=== PATIENT | female | born 1990 | race American Indian/Alaskan Native ===

== ENCOUNTER 2019-01-09 14:29 | Emergency (ER) | payer OTHER, MEDICAID ==
--- NOTE | 2019-01-09 15:26 | Emergency Department Report ---
Blank Doc - Documentation Documentation: This is a 28-year-old female that presents with URI symptoms. This initial assessment/diagnostic orders/clinical plan/treatment(s) is/are subject to change based on patient's health status, clinical progression and re- assessment by fellow clinical providers in the ED. Further treatment and workup at subsequent clinical providers discretion. Patient/guardians urged not to elope from the ED as their condition may be serious if not clinically assessed and managed. Initial orders include: 1- Patient sent to [facility] for further evaluation and treatment 2- CXR
[2019-01-09 19:36] LABS: Hemoglobin 12.4 gm/dl (10.1-14.3)
[2019-01-09 20:58] VITALS: BP 116/65
[2019-01-09 21:28] LABS: Bacteria,Urine 1+ /HPF (Negative); Bilirubin,Urine NEG (Negative); Blood,Urine NEG (Negative); Color,Urine Straw (Yellow); Protein,Urine <15 mg/dL mg/dL (Negative); Urobilinogen,Urine < 2.0 mg/dL (<2.0)
--- NOTE | 2019-01-09 22:55 | Emergency Department Report ---
ED General Adult HPI - General Chief complaint: Upper Respiratory Infection Stated complaint: COLD SX/PREG Time Seen by Provider: 01/09/19 15:25 Source: patient Mode of arrival: Ambulatory Limitations: No Limitations - History of Present Illness Initial comments: Pt is a 28 yo female who presents to the ED with c/o cold sx that began two weeks ago. The patient states she has dry cough, rhinorrhea, chills, fever, body aches, and MCKEON. The patient states she has also had suprapubic cramping for two days. She denies any urinary sx or vaginal bleeding. She was seen by urgent care today and states she tested positive for strep throat by throat swab and i nfluenza by nasal swab. The patient states she also was not aware she was and had a positive test at the urgent care, she staetes based on her LNMP she is 10 weeks . She states she has taken nyquil for two days and has taken a total of 6 pills over the course of two days. She states that the urgent care called Dr. Ruiz, OB who recommended for the patient to be seen in the ED for a OB US. The patient states she was given a prescription for zithromax by the urgent care. Severity scale (0 -10): 8 - Related Data Previous Rx's Medication Instructions Recorded Last Taken Type Azithromycin [Zithromax TAB] 500 mg PO QDAY #5 tablet 11/21/18 Unknown Rx Oseltamivir [Tamiflu] 75 mg PO BID 5 Days #10 cap 01/09/19 Unknown Rx Allergies Allergy/AdvReac Type Severity Reaction Status Date / Time Penicillins Allergy Angioedema Verified 01/09/19 15:26 ED Review of Systems ROS: Stated complaint: COLD SX/PREG Other details as noted in HPI Comment: All other systems reviewed and negative ED Past Medical Hx - Past Medical History Hx Asthma: Yes Additional medical history: pyloric stenosis - Surgical History Additional Surgical History: tonsillectomy, - Social History Smoking Status: Never Smoker Substance Use Type: None - Medications Home Medications: Home Medications Medication Instructions Recorded Confirmed Last Taken Type Azithromycin [Zithromax TAB] 500 mg PO QDAY #5 tablet 11/21/18 Unknown Rx Oseltamivir [Tamiflu] 75 mg PO BID 5 Days #10 cap 01/09/19 Unknown Rx ED Physical Exam - General Limitations: No Limitations General appearance: alert, in no apparent distress - Head Head exam: Present: atraumatic, normocephalic - Eye Eye exam: Present: normal appearance, PERRL, EOMI - ENT ENT exam: Present: normal orophraynx, mucous membranes moist, other (tonsils are absent, no erythema of the oropharynx or exudates, uvula is midline) - Neck Neck exam: Present: normal inspection, full ROM. Absent: meningismus - Respiratory Respiratory exam: Present: normal lung sounds bilaterally. Absent: respiratory distress, wheezes, rales, rhonchi, stridor, chest wall tenderness, accessory muscle use, decreased breath sounds, prolonged expiratory - Cardiovascular Cardiovascular Exam: Present: regular rate, normal rhythm, normal heart sounds. Absent: systolic murmur, rubs, gallop - GI/Abdominal GI/Abdominal exam: Present: soft, normal bowel sounds. Absent: distended, t enderness, guarding, rebound, rigid - Neurological Exam Neurological exam: Present: alert, oriented X3 - Psychiatric Psychiatric exam: Present: normal affect, normal mood - Skin Skin exam: Present: warm, dry, intact ED Course Vital Signs 01/09/19 01/09/19 01/09/19 15:26 20:57 23:49 Temperature 98.1 F 98.7 F Pulse Rate 82 85 77 Respiratory 16 20 17 Rate Blood Pressure 126/70 Blood Pressure 116/65 [Left] O2 Sat by Pulse 100 99 99 Oximetry ED Medical Decision Making - Lab Data Result diagrams: 01/09/19 19:28 Lab Results 01/09/19 01/09/19 01/09/19 Range/Units 19:28 19:28 19:28 Hgb 12.4 (10.1-14.3) gm/dl Hct 35.0 (30.3-42.9) % Plt Count 233 (140-440) K/mm3 HCG, Quant 195237 H (0-4) mIU/mL Urine Color (Yellow) Urine Turbidity (Clear) Urine pH (5.0-7.0) Ur Specific [place] (1.003-1.030) Urine Protein (Negative) mg/dL Urine Glucose (UA) (Negative) mg/dL Urine Ketones (Negative) mg/dL Urine Blood (Negative) Urine Nitrite (Negative) Urine Bilirubin (Negative) Urine Urobilinogen (<2.0) mg/dL Ur Leukocyte Esterase (Negative) Urine WBC (Auto) (0.0-6.0) /HPF Urine RBC (Auto) (0.0-6.0) /HPF U Epithel Cells (Auto) (0-13.0) /HPF Urine Bacteria (Auto) (Negative) /HPF Blood Type O NEGATIVE 01/09/19 Range/Units 19:54 Hgb (10.1-14.3) gm/dl Hct (30.3-42.9) % Plt Count (140-440) K/mm3 HCG, Quant (0-4) mIU/mL Urine Color Straw (Yellow) Urine Turbidity Clear (Clear) Urine pH 7.0 (5.0-7.0) Ur Specific [place] 1.005 (1.003-1.030) Urine Protein <15 mg/dl (Negative) mg/dL Urine Glucose (UA) Neg (Negative) mg/dL Urine Ketones Neg (Negative) mg/dL Urine Blood Neg (Negative) Urine Nitrite Neg (Negative) Urine Bilirubin Neg (Negative) Urine Urobilinogen < 2.0 (<2.0) mg/dL Ur Leukocyte Esterase Sm (Negative) Urine WBC (Auto) 1.0 (0.0-6.0) /HPF Urine RBC (Auto) 1.0 (0.0-6.0) /HPF U Epithel Cells (Auto) 1.0 (0-13.0) /HPF Urine Bacteria (Auto) 1+ (Negative) /HPF Blood Type Vital Signs 01/09/19 01/09/19 15:26 20:57 Temperature 98.1 F 98.7 F Pulse Rate 82 85 Respiratory 16 20 Rate Blood Pressure 126/70 Blood Pressure 116/65 [Left] O2 Sat by Pulse 100 99 Oximetry - Radiology Data Radiology results: report reviewed PROCEDURE: US OB <= 14 WEEKS FETUS TECHNIQUE: Real-time transabdominal sonography of the uterus, placenta, amniotic fluid, adnexa, and fetus was performed with image documentation. Measurements were obtained to determine age/size. M-mode Doppler was used to document heartbeat. ADDITIONAL GESTATION: None. HISTORY: 10 weeks based on LNMP, abd cramping COMPARISONS: None . FINDINGS: CRL: 15.7 mm, which corresponds to a gestational age of: 8 weeks, 0 days. Yolk Sac: Appropriate for gestational age. . Embryonic Cardiac Activity: 1 7 6 bpm . Gestational Sac: Size and shape are appropriate for gestational age Placenta: Normal Amniotic fluid: Appropriate for gestational age. Cervix: Normal. Right Ovary: Normal . Left Ovary: Not identified. . Estimated delivery date: 08/21/2019 . Uterus and adnexa: Normal. IMPRESSION: Single live intrauterine gestation at approximately 8 weeks . EDC by US 08/21/2019 . This document is electronically signed by Dandy Tejeda MD., January 09 2019 11:17:46 PM ET - Medical Decision Making Pt is a 28 yo female who presents to the ED with c/o cold sx that began two weeks ago. The patient states she has dry cough, rhinorrhea, chills, fever, body aches, and MCKEON. The patient states she has also had suprapubic cramping for two days. She denies any urinary sx or vaginal bleeding. She was seen by urgent care today and states she tested positive for strep throat by throat swab and influenza by nasal swab. The patient states she also was not aware she was and had a positive test at the urgent care, she staetes based on her LNMP she is 10 weeks . She states she has taken nyquil for two days and has taken a total of 6 pills over the course of two days. She states that the urgent care called Dr. Ruiz, OB who recommended for the patient to be seen in the ED for a OB US. The patient states she was given a prescription for zithromax by the urgent care, advised pt to fill this prescription and take as prescribed. On examination lungs are clear with no w/r/r bilaterally. vitals signs are all normal. pt does not have a productive cough. she states she occasionally has a dry cough. labs are all WNL, UA is normal. US shows live IUP at 8 weeks gestation. Will give pt tamiflu based on the medical literature. Will have pt follow up with an CHIEF OPERATOR in the next 2-3 days. Will have pt follow up with her PCP in the next 2-3 days. Discussed in detail with pt to return to the emergency immediately for any new or worsening symptoms or if symptoms not improving. - Differential Diagnosis influenza, strep, URI, viral syndrome, Critical care attestation.: If time is entered above; I have spent that time in minutes in the direct care of this critically ill patient, excluding procedure time. ED Disposition Clinical Impression: Influenza Qualifiers: Weeks of gestation: 8 weeks Qualified Code(s): Z3A.08 - 8 weeks gestation of Disposition: DC-01 TO HOME OR SELFCARE Is pt being admited?: No Does the pt Need Aspirin: No Condition: Stable Instructions: (ED), Influenza (ED) Additional Instructions: Please follow up with a primary care doctor and an CHIEF OPERATOR in the next 2-3 days. Please take medication as prescribed. Please take the zithromax that was prescribed to you by urgent care. May use tylenol for a temperature of 100.4 or greater. Return to the emergency room for any new or worsening symptoms as discussed. Prescriptions: Oseltamivir [Tamiflu] 75 mg PO BID 5 Days #10 cap Referrals: RAGINI PRINGLE MD [Primary Care Provider] - 2-3 Days GRACE FRENCH MD [Staff Physician] - 2-3 Days Forms: Work/School Release Form(ED) Time of Disposition: 23:29 Print Language: LUX[place]BOURGISH
--- NOTE | 2019-01-09 23:19 | Ultrasound Report ---
PROCEDURE: US OB <= 14 WEEKS FETUS TECHNIQUE: Real-time transabdominal sonography of the uterus, placenta, amniotic fluid, adnexa, and fetus was performed with image documentation. Measurements were obtained to determine age/size. M-mode Doppler was used to document heartbeat. ADDITIONAL GESTATION: None. HISTORY: 10 weeks based on LNMP, abd cramping COMPARISONS: None . FINDINGS: CRL: 15.7 mm, which corresponds to a gestational age of: 8 weeks, 0 days. Yolk Sac: Appropriate for gestational age. . Embryonic Cardiac Activity: 1 7 6 bpm . Gestational Sac: Size and shape are appropriate for gestational age Placenta: Normal Amniotic fluid: Appropriate for gestational age. Cervix: Normal. Right Ovary: Normal . Left Ovary: Not identified. . Estimated delivery date: 08/21/2019 . Uterus and adnexa: Normal. IMPRESSION: Single live intrauterine gestation at approximately 8 weeks . EDC by US 08/21/2019 . This document is electronically signed by Dandy Tejeda MD., January 09 2019 11:17:46 PM ET
--- NOTE | 2019-01-09 23:55 | Ultrasound Report ---
PROCEDURE: US OB TRANSVAGINAL TECHNIQUE: Transvaginal OB ultrasound was performed. Image documentation measurements were obtained. HISTORY: 10 weeks based on LNMP, abd cramping COMPARISONS: Transabdominal OB ultrasound also performed today. FINDINGS: Images from both the transabdominal and transvaginal scanning were utilized to generate this report. There is a single living intrauterine gestation with a heart rate of 176 bpm. Subjectively the amount of amniotic fluid appears normal. Fetus is currently too small to assess anatomy. No gross abn ormality is visualized. [place] rump length measurement 15.7 mm corresponds to an age of 8 weeks [address] the EDC at 08/21/2019 +/- 0.5weeks. No evidence of subchorionic hemorrhage. Yolk sac is visualized. Right ovary showed no abnormality. The left ovary was not visualized. No abnormal adnexal masses are seen on the left. IMPRESSION: Single living intrauterine gestation visualized. By crown-rump length measurements the estimated age is [address] the EDC at 08/21/2019 +/- 0.5 weeks.. Fetus currently to small to asses s anatomy. No gross abnormalities seen. No evidence of subchorionic hemorrhage. Right ovary is unremarkable. Left ovary was not visualized. No abnormal adnexal masses were seen on t he left.. This document is electronically signed by Dilshad Jacobsen MD., January 09 2019 11:53:02 PM ET
== END 2019-01-09 23:51 | disposition home or self-care (01) ==
LOC: ED 14:29
DX: O99.511 Diseases of the respiratory system complicating pregnancy, first trimester (principal); J11.1 Influenza due to unidentified influenza virus with other respiratory manifestations; J45.909 Unspecified asthma, uncomplicated; Z3A.01 Less than 8 weeks gestation of pregnancy
CPT/HCPCS: 36415; 76801; 76817; 81001; 84702; 85014; 85018; 85049; 86900; 86901

== ENCOUNTER 2019-08-09 20:23 | Outpatient (CLI) | payer MEDICAID ==
[2019-08-09] MEDS ORDERED: ACETAMINOPHEN 325 MG TAB PO ONE (21:18)
[2019-08-09 21:56] VITALS: BP 118/63
--- NOTE | 2019-08-09 22:48 | Ultrasound Report ---
ULTRASOUND OBSTETRIC LIMITED INDICATION / CLINICAL INFORMATION: DISCHARGE. MICKI. COMPARISON: 08/03/19 FINDINGS: HEART RATE (beats per minute): 167 AMNIOTIC FLUID INDEX (cm) = 12.9 -- within normal limits PRESENTATION: Cephalic. ADDITIONAL FINDINGS: On one of the cine loops, the umbilical cord is noted to be adjacent to the neck of the fetus. IMPRESSION: 1. Normal heart rate and amniotic fluid index. 2. Umbilical cord adjacent to the neck of the fetus. Signer Name: Seble Bagley MD Signed: 08/09/2019 10:44 PM Workstation Name: [id number]
== END 2019-08-09 23:05 | disposition home or self-care (01) ==
LOC: TRG 20:23
PROVIDERS: ATTEND Obstetrics & Gynecology
DX: O26.853 Spotting complicating pregnancy, third trimester (principal); Z3A.34 34 weeks gestation of pregnancy; O99.343 Other mental disorders complicating pregnancy, third trimester; F41.9 Anxiety disorder, unspecified
CPT/HCPCS: 76815

== ENCOUNTER 2019-08-11 02:11 | Outpatient (CLI) | payer MEDICAID | END 2019-08-11 05:39 | disposition home or self-care (01) | LOC: TRG 02:11 | PROVIDERS: ATTEND Obstetrics & Gynecology | DX: O62.9 Abnormality of forces of labor, unspecified (principal); Z3A.38 38 weeks gestation of pregnancy | CPT/HCPCS: 59025 ==

== ENCOUNTER 2019-08-11 10:49 | Inpatient (IN) | payer MEDICAID ==
[2019-08-11 13:34] LABS: Hematocrit 33.8 % (30.3-42.9); Hemoglobin 11.8 gm/dl (10.1-14.3); Mean Corpuscular HGB Conc 35 % (30-34); Mean Corpuscular Volume 78 fl (79-97); Platelet Count 158 K/mm3 (140-440); Red Blood Count 4.35 M/mm3 (3.65-5.03); Red Cell Distribution Width 16.3 % (13.2-15.2)
[2019-08-11] MEDS ORDERED: ePHEDrine SULFATE 50 MG/1 ML INJ IV PRN (13:47)
[2019-08-11] MEDS ORDERED: LIDOCAINE (2%) 20 MG/1 ML VIAL 20 ML MDV INFILTRATI ONE (13:47)
[2019-08-11] MEDS ORDERED: MINERAL OIL 30 ML ORAL LIQD PO PRN (13:47)
[2019-08-11] MEDS ORDERED: fentaNYL 100 MCG/2 ML INJ IV PRN (13:47)
[2019-08-11] MEDS ORDERED: TERBUTALINE 1 MG/1 ML INJ SUB-Q PRN (13:47)
[2019-08-11] MEDS ORDERED: ONDANSETRON 4 MG/2 ML INJ IV PRN (13:47)
--- NOTE | 2019-08-11 13:52 | History and Physical Report ---
History of Present Illness Date of examination: 08/11/19 ( in labor) Date of admission: 08/11/19 11:00 History of present illness: EDC Confirmation: 08/22/2019 Gestational Age: 9 weeks Past History : 6 Term Births: 5 Premature Births: 0 Living Children: 5 Para: 5 Mult. Births: 0 Prev : 0 Aborta: 0 Elect. Ab: 0 Spont. Ab: 0 Ectopics: 0 # 1 Delivery date: 2007 Weeks Gestation: term labor: no Delivery type: Sex: Male weight: 6#3 # 2 Delivery date: 2009 Weeks Gestation: term labor: no Delivery type: Infant Sex: Female weight: 6#10 # 3 Delivery date: 2010 Weeks Gestation: term labor: no Delivery type: Infant Sex: Male weight: 7#1 # 4 Delivery date: 2011 Weeks Gestation: term labor: no Delivery type: Infant Sex: Male weight: 7#5 # 5 Delivery date: 2018 Weeks Gestation: term labor: no Delivery type: Infant Sex: Male weight: 7#8 Past Medical History: Asthma season allergies RH neg Past Surgical History: Pyloric stenosis repair @ 6 weeks old Lap for endometrosis (2013) Past Medical History Surgery (Non-quill skinner): Pyloric stenosis repair @ 6 weeks old Lap for endometrosis (2013) Abnormal PAP: negative 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 of genital herpes: no Partner hx. of genital herpes: no Rash, Viral, or Febrile illness since last LMP? no Varicella/Chicken Pox Status: Previous Disease Genetic History Congenital Heart Defect: Mom: no Dad: no Dayan Disease: Mom: no Dad: no Thalassemia Mom: no Dad: no Neural Tube Defect Mom: no Dad: no Down's Syndrome Mom: no Dad: no Omar-Sachs Mom: no Dad: no Sickle Cell Disease/Trait Mom: yes Dad: no Hemophilia Mom: no Dad: no Muscular Dystrophy Mom: no Dad: no Cystic Fibrosis Mom: no Dad: no Estefania Chorea Mom: no Dad: no Mental Retardation Mom: no Dad: no Fragile X Mom: no Dad: no Other Genetic/Chromosomal Disorder Mom: no Dad: no Child w/other defect Mom: no Dad: no Enviromental Exposures Xray Exposure: yes Medication, drug, or alcohol use since LMP: no Chemical/Other Exposure: no Exposure to Cat Liter: no Hx of Parvovirus (Fifth Disease): no Occupational Exposure to Children: none 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 and wear occupational radiation exposure meter Active Medications (reviewed today): None Current Allergies (reviewed today): * PCN (Critical) Past History - Obstetrical History Expected Date of Delivery: 08/22/19 Actual Gestation: 38 Week(s) 3 Day(s) : 6 Para: 5 Hx # Term Pregnancies: 5 Number of Pregnancies: 0 Spontaneous Abortions: 0 Induced : 0 Number of Living Children: 5 Medications and Allergies Allergies Allergy/AdvReac Type Severity Reaction Status Date / Time Penicillins Allergy Angioedema Verified 01/09/19 15:26 Sulfa (Sulfonamide Allergy Angioedema Verified 08/02/19 13:13 Antibiotics) Home Medications Medication Instructions Recorded Confirmed Last Taken Type Azithromycin [Zithromax TAB] 500 mg PO QDAY #5 tablet 11/21/18 Unknown Rx Oseltamivir [Tamiflu] 75 mg PO BID 5 Days #10 cap 01/09/19 Unknown Rx Active Meds: Active Medications Ephedrine Sulfate (Ephedrine Sulfate) 10 mg IV Q2M PRN PRN Reason: Hypotension Lidocaine (Xylocaine 2%) 20 ml INFILTRATI ONCE ONE Stop: 08/11/19 13:48 Mineral Oil (Mineral Oil) 30 ml PO QHS PRN PRN Reason: Constipation Terbutaline Sulfate (Brethine) 0.25 mg SUB-Q ONCE PRN PRN Reason: Hyperstimulation/Hypertonicity - Vital Signs Vital signs: Vital Signs Pulse BP 108 H 112/75 08/11/19 11:01 08/11/19 11:01 Temp Pulse Resp BP Pulse Ox 98.2 F 108 H 20 112/75 96 08/11/19 11:06 08/11/19 11:06 08/11/19 11:06 08/11/19 11:06 08/11/19 11:06 - Physical Exam Breasts: Positive: deferred Cardiovascular: Regular rate, Normal S1, Normal S2 Lungs: Positive: Clear to auscultation Abdomen: Positive: normal appearance, soft, normal bowel sounds. Negative: distention, tenderness Genitourinary (Female): Positive: normal external genitalia Vulva: both: normal Vagina: Positive: normal moisture. Negative: discharge Cervix: Negative: lesion, discharge Uterus: Positive: normal size, normal contour Adnexa: both: normal Anus/Rectum: Positive: normal perianal skin, heme negative. Negative: rectal mass, hemorrhoids Extremities: Positive: normal Deep Tendon Reflex Grade: Normal +2 - Obstetrical FHR: category 1 Uterine Contraction Monitor Mode: External Cervical Dilatation: 4 (chg from 2cm to 4 with ambulating) Cervical Effacement Percentage: 70 station: -2 Uterine Contraction Pattern: Irregular Uterine Contraction Intensity: Mild Results Result Diagrams: 08/11/19 13:10 Abnormal lab results 08/11/19 Range/Units 13:10 MCV 78 L (79-97) fl MCH 27 L (28-32) pg MCHC 35 H (30-34) % RDW 16.3 H (13.2-15.2) % All other labs normal. GBS NEGATIVE HBsAg Screen Negative Negative *1 RPR Non Reactive Non Reactive *2 Rubella Antibodies, IgG 5.38 index Immune >0.99 *3 Non-immune <0.90 Equivocal 0.90 - 0.99 Immune >0.99 ABO Grouping O *4 Rh Factor Negative *5 Please note: Prior records for this patient's ABO / Rh type are not available for additional verification. Antibody Screen Negative Negative *6 WBC 7.4 x10E3/uL 3.4-10.8 *7 RBC 4.30 x10E6/uL 3.77-5.28 *8 Hemoglobin 11.9 g/dL 11.1-15.9 *9 Hematocrit 36.0 % 34.0-46.6 *10 MCV 84 fL 79-97 *11 MCH 27.7 pg 26.6-33.0 *12 MCHC 33.1 g/dL 31.5-35.7 *13 RDW [H] 15.6 % 12.3-15.4 *14 Platelets 224 x10E3/uL 150-450 *15 Neutrophils 64 % Not Estab. *16 Lymphs 29 % Not Estab. *17 Monocytes 5 % Not Estab. *18 Eos 2 % Not Estab. *19 Basos 0 % Not Estab. *20 ! Immature Cells <No Reported Value> *21 Neutrophils (Absolute) 4.7 x10E3/uL 1.4-7.0 *22 Lymphs (Absolute) 2.2 x10E3/uL 0.7-3.1 *23 Monocytes(Absolute) 0.4 x10E3/uL 0.1-0.9 *24 Eos (Absolute) 0.1 x10E3/uL 0.0-0.4 *25 Baso (Absolute) 0.0 x10E3/uL 0.0-0.2 *26 ! Immature Granulocytes 0 % Not Estab. *27 ! Immature Grans (Abs) 0.0 x10E3/uL 0.0-0.1 *28 ! NRBC <No Reported Value> *29 Hematology Comments: <No Reported Value> *30 Tests: (2) AFP Tetra (764435) ! Results Report *31 ! Test Results: *Screen Negative* *32 ! Tests: (3) Cystic Fibrosis Profile (102911) ! CF, Screen Comment: *55 RESULTS: Negative for 32 mutations analyzed INTERPRETATION: Tests: (4) HB Solu + Rflx [facility] (936111) Hemoglobin (Hgb) Solubility Negative Negative *57 Tests: (5) Panel 134239 (516321) HIV Screen 4th Generation wRfx Non Reactive Non Reactive *58 Tests: (6) HCV Ab w/Rflx to Verification ([id number]) ! HCV Ab <0.1 s/co ratio 0.0-0.9 *59 Tests: (7) Comment: ([id number]) ! Comment: SPRCS *60 Non reactive HCV antibody screen is consistent with no HCV infection, unless recent infection is suspected or other evidence exists to indicate HCV infection. Assessment and Plan 28 yo in active labor Cervical chg after walking X 90 min. GBS Negative Orders in EMR aware of admission
[2019-08-11] MEDS ORDERED: LACTATED RINGERS 1,000 ML IV SCH (14:00)
[2019-08-11] MEDS ORDERED: OXYTOCIN 20 UNIT/1000ML DRIP 20 UNITS/1,000 ML BAG IV SCH (14:00)
[2019-08-11] MEDS: OXYTOCIN DRIP 30 UNITS/500 ML BAG IV SCH ×4 (15:14→19:36)
--- NOTE | 2019-08-11 19:32 | Progress Note ---
Assessment and Plan Pt doing well Making progress Pit @ 10mu Anticipate delivery Subjective - Subjective Date of service: 08/11/19 (tolerating labor well; declines epidural) Principal diagnosis: @ 38 weeks in labor Interval history: EDC Confirmation: 08/22/2019 Gestational Age: 9 weeks Past History : 6 Term Births: 5 Premature Births: 0 Living Children: 5 Para: 5 Mult. Births: 0 Prev : 0 Aborta: 0 Elect. Ab: 0 Spont. Ab: 0 Ectopics: 0 # 1 Delivery date: 2007 Weeks Gestation: term labor: no Delivery type: Infant Sex: Male weight: 6#3 # 2 Delivery date: 2009 Weeks Gestation: term labor: no Delivery type: Sex: Female weight: 6#10 # 3 Delivery date: 2011 Weeks Gestation: term labor: no Delivery type: Sex: Male weight: 7#1 # 4 Delivery date: 2012 Weeks Gestation: term labor: no Delivery type: Infant Sex: Male weight: 7#5 # 5 Delivery date: 2018 Weeks Gestation: term labor: no Delivery type: Infant Sex: Male weight: 7#8 Past Medical History: Asthma season allergies RH neg Past Surgical History: Pyloric stenosis repair @ 6 weeks old Lap for endometrosis (2013) Past Medical History Surgery (Non-internal audit consultant): Pyloric stenosis repair @ 6 weeks old Lap for endometrosis (2013) Abnormal PAP: negative 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 of genital herpes: no Partner hx. of genital herpes: no Rash, Viral, or Febrile illness since last LMP? no Varicella/Chicken Pox Status: Previous Disease Genetic History Congenital Heart Defect: Mom: no Dad: no Dayan Disease: Mom: no Dad: no Thalassemia Mom: no Dad: no Neural Tube Defect Mom: no Dad: no Down's Syndrome Mom: no Dad: no Omar-Sachs Mom: no Dad: no Sickle Cell Disease/Trait Mom: yes Dad: no Hemophilia Mom: no Dad: no Muscular Dystrophy Mom: no Dad: no Cystic Fibrosis Mom: no Dad: no Estefania Chorea Mom: no Dad: no Mental Retardation Mom: no Dad: no Fragile X Mom: no Dad: no Other Genetic/Chromosomal Disorder Mom: no Dad: no Child w/other defect Mom: no Dad: no Enviromental Exposures Xray Exposure: yes Medication, drug, or alcohol use since LMP: no Chemical/Other Exposure: no Exposure to Cat Liter: no Hx of Parvovirus (Fifth Disease): no Occupational Exposure to Children: none 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 and wear occupational radiation exposure meter Active Medications (reviewed today): None Current Allergies (reviewed today): * PCN (Critical) Patient reports: movement normal, contractions Objective - Vital Signs Vital Signs: Vital Signs - 12hr 08/11/19 08/11/19 08/11/19 11:01 11:06 15:04 Temperature 98.2 F Pulse Rate 108 H 108 H 93 H Respiratory 20 Rate Blood Pressure 112/75 118/61 Blood Pressure 112/75 [Left] O2 Sat by Pulse 96 Oximetry 08/11/19 08/11/19 08/11/19 15:27 17:51 17:56 Temperature 97.6 F Pulse Rate 93 H 94 H 86 Respiratory 18 Rate Blood Pressure Blood Pressure 118/61 [Left] O2 Sat by Pulse 98 97 Oximetry 08/11/19 08/11/19 08/11/19 18:01 18:06 18:11 Temperature Pulse Rate 91 H 95 H 89 Respiratory Rate Blood Pressure Blood Pressure [Left] O2 Sat by Pulse 97 97 96 Oximetry 08/11/19 08/11/19 18:16 18:21 Temperature Pulse Rate 87 95 H Respiratory Rate Blood Pressure Blood Pressure [Left] O2 Sat by Pulse 98 95 Oximetry - Exam Breasts: deferred Cardiovascular: Regular rate Lungs: Normal air movement Abdomen: Present: normal appearance, soft. Absent: distention, tenderness Vulva: both: normal Uterus: Present: normal FHR: auscultation normal, category 1 Uterine Contraction Monitor Mode: Internal Cervical Dilatation: 5 (ISE/IUPC placed) Cervical Effacement Percentage: 80 (clear fluid) station: -1 Uterine Contraction Pattern: Regular Uterine Tone Measurement Phase: Resting Uterine Contraction Intensity: Strong/Firm Extremities: normal Deep Tendon Reflex Grade: Normal +2 - Labs Labs: Abnormal Labs 08/11/19 13:10 MCV 78 L MCH 27 L MCHC 35 H RDW 16.3 H Laboratory Results - last 24 hr 08/11/19 08/11/19 08/11/19 13:10 13:10 13:10 WBC 9.3 RBC 4.35 Hgb 11.8 Hct 33.8 MCV 78 L MCH 27 L MCHC 35 H RDW 16.3 H Plt Count 158 Syphilis IgG Antibody Non-reactive Blood Type O NEGATIVE Antibody Screen Negative
[2019-08-11] MEDS ORDERED: METHYLERGONOVINE MALEATE 0.2 MG/ML VIAL IM ONE ×2 (20:10→20:30)
[2019-08-11] MEDS ORDERED: miSOPROStol 200 MCG TAB ONE (20:10)
[2019-08-11] MEDS ORDERED: miSOPROStol 200 MCG TAB PR ONE (20:30)
[2019-08-11] MEDS ORDERED: MAGNESIUM HYDROXIDE (MOM) ORAL LIQD UDC PO PRN (20:33)
[2019-08-11] MEDS ORDERED: LANOLIN/ZINC/DIMETHICONE (LANSINOH) 7 GM TP PRN (20:33)
[2019-08-11] MEDS ORDERED: ACETAMINOPHEN 325 MG TAB PO PRN (20:33)
[2019-08-11] MEDS ORDERED: HYDROcodone/ACETAMINOPHEN 5-325 MG TAB PO PRN (20:33)
[2019-08-11] MEDS ORDERED: diphenhydrAMINE 25 MG CAP PO PRN (20:33)
[2019-08-11] MEDS ORDERED: PROMETHAZINE 25 MG TAB PO PRN (20:33)
--- NOTE | 2019-08-11 20:43 | Procedure Note ---
OB Delivery Note - Surveillance Dual Rate Officer: FRAN DAVIS Estimated blood loss: 500cc - Vaginal Delivery presentation: vertex Delivery position: OA Intrapartum events: uterine atony (>500ml resolved with massage, uterine sweep;Pit IVFs; methergine IM; and cytotec [place]) Delivery induction: none Delivery augmentation: pitocin Delivery monitor: internal FHT, internal uterine Route of delivery: Delivery placenta: spontaneous Delivery cord: nuchal cord (X2 reduced), true knot (loose Pt and SO aware) Episiotomy: none Delivery laceration: none Anesthesia: none Delivery comments: Pt called to desk with urge to push Rapid progression to complete. live born female over intact perineum. CAN X 2 reduced True knot in the cord. Baby skin to skin Cord blood obtained Placenta and membrane delivered complete and intact, 3 vessel cord. Uterine atony noted massage, uterine sweep Pit IVFs Methergine IM and cytotec 800mcg [place] utilized Pt stated this happened in a previous . 8/9, EBL >500, Wgt 6-5. Mom and baby remain LDR stable. FF @ umb Lochia moderate Pt w/o s/sx of anemia. VSS Methergine po ordered X 24hours - A at 1 minute: 8 at 5 minutes: 9 Infant Gender: Female (wgt 6-5)
[2019-08-11] MEDS: IBUPROFEN 600 MG TAB PO SCH (23:54)
[2019-08-11] MEDS: DOCUSATE SODIUM 100 MG CAP PO SCH (23:55)
[2019-08-11] MEDS: FERROUS SULFATE 325 MG TAB PO SCH (23:55)
[2019-08-12] MEDS: METHYLERGONOVINE 0.2 MG TABLET PO SCH ×3 (02:13→13:23)
[2019-08-12] MEDS: WITCH HAZEL/ GLYCERIN PAD TP PRN ×2 (04:34→09:33)
[2019-08-12] MEDS: IBUPROFEN 600 MG TAB PO SCH ×3 (04:37→21:00)
[2019-08-12 09:24] LABS: Hematocrit 31.4 % (30.3-42.9); Hemoglobin 10.8 gm/dl (10.1-14.3)
[2019-08-12] MEDS: DOCUSATE SODIUM 100 MG CAP PO SCH ×2 (09:33→21:41)
[2019-08-12] MEDS: FERROUS SULFATE 325 MG TAB PO SCH ×2 (09:33→21:41)
[2019-08-12] MEDS ORDERED: BENZOCAINE/MENTHOL 20/0.5% TOP SPRAY 56 GM TP PRN (10:00)
--- NOTE | 2019-08-12 10:53 | Discharge Summary ---
Providers - Providers Date of Admission: 08/11/19 13:47 Date of discharge: 08/12/19 (desires d/c home tonight) Attending physician: LINDSAY STACK Primary care physician: LINDSAY STACK Hospitalization Reason for admission: Labor Condition: Good Pertinent studies: post delivery H&H 10.8/31.4 Procedures: Hospital course: uncomplicated and course Disposition: DC-01 TO HOME OR SELFCARE - Discharge Diagnoses (1) Normal spontaneous vaginal delivery Status: Acute Core Measure Documentation - Palliative Care Palliative Care/ Comfort Measures: Not Applicable - Core Measures Any of the following diagnoses?: none Exam - Constitutional Vitals: Temp Pulse Resp BP Pulse Ox 97.6 F 64 16 118/75 98 08/12/19 07:37 08/12/19 07:37 08/12/19 07:37 08/12/19 07:37 08/12/19 07:37 General appearance: Present: no acute distress, well-nourished - EENT Eyes: Present: PERRL ENT: hearing intact, clear oral mucosa - Neck Neck: Present: supple, normal ROM - Respiratory Respiratory effort: normal Respiratory: bilateral: CTA - Cardiovascular Heart Sounds: Present: rub - Extremities Extremities: No edema Peripheral Pulses: within normal limits - Abdominal General gastrointestinal: Present: soft, non-tender, non-distended, normal bowel sounds Female genitourinary: Present: normal - Integumentary Integumentary: Present: clear, warm, dry - Musculoskeletal Musculoskeletal: gait normal, strength equal bilaterally - Psychiatric Psychiatric: appropriate mood/affect, intact judgment & insight - Neurologic Neurologic: CNII-XII intact, moves all extremities Plan Activity: no restrictions Diet: regular Follow up with: LINDSAY STACK MD [Primary Care Provider] - 6 Weeks (Congratulations! Please call [phone] to schedule your visit in 6 weeks. Call for any questions or concerns.) Prescriptions: Ibuprofen [Motrin 800 MG tab] 800 mg PO Q8HR PRN #30 tablet PRN Reason: Pain
[2019-08-12] MEDS ORDERED: medroxyPROGESTERone ACETATE 150 MG/ML SYRINGE IM NR (18:00)
[2019-08-12] MEDS ORDERED: MEASLES, MUMPS & RUBELLA 12,500 UNIT/0.5 ML VACCINE SUB-Q ONE (20:33)
[2019-08-12] MEDS ORDERED: TETANUS,DIPH,PERTUSS(ACELL) VACCINE 0.5 ML SYRINGE IM ONE (20:33)
[2019-08-13] MEDS: IBUPROFEN 600 MG TAB PO SCH ×4 (03:00→16:33)
[2019-08-13] MEDS: FERROUS SULFATE 325 MG TAB PO SCH (10:21)
[2019-08-13] MEDS: DOCUSATE SODIUM 100 MG CAP PO SCH (10:21)
[2019-08-13] MEDS: WITCH HAZEL/ GLYCERIN PAD TP PRN (18:06)
[2019-08-13 18:22] VITALS: BP 113/60
== END 2019-08-13 18:06 | disposition home or self-care (01) | DRG 775 ==
LOC: TRG 10:49 → LD 11:00 → TRG 13:39 → OBSVTOIN 13:47 → OB 22:13
PROVIDERS: ADMIT Obstetrics & Gynecology; ATTEND Obstetrics & Gynecology
PROC: 10E0XZZ Delivery of Products of Conception, External Approach (ICD-10-PCS; principal; 2019-08-11)
PROC: 10H07YZ Insertion of Other Device into Products of Conception, Via Natural or Artificial Opening (ICD-10-PCS; 2019-08-11)
PROC: 3E0234Z Introduction of Serum, Toxoid and Vaccine into Muscle, Percutaneous Approach (ICD-10-PCS; 2019-08-12)
PROC: 3E0234Z Introduction of Serum, Toxoid and Vaccine into Muscle, Percutaneous Approach (ICD-10-PCS; 2019-08-13)
DX: O69.81X0 Labor and delivery complicated by cord around neck, without compression, not applicable or unspecified (principal); O69.2XX0 Labor and delivery complicated by other cord entanglement, with compression, not applicable or unspecified; O26.893 Other specified pregnancy related conditions, third trimester; J45.909 Unspecified asthma, uncomplicated; O62.2 Other uterine inertia; Z3A.38 38 weeks gestation of pregnancy; Z37.0 Single live birth; Z23 Encounter for immunization; Z88.0 Allergy status to penicillin; Z88.2 Allergy status to sulfonamides; Z67.41 Type O blood, Rh negative
CPT/HCPCS: 36415; 59025; 76815; 85014; 85018; 85027; 85461; 86592; 86850; 86900; 86901; G0378; J2210; J2590; J2790; J7120

== ENCOUNTER 2019-11-17 15:24 | Emergency (ER) | payer MEDICAID ==
--- NOTE | 2019-11-17 18:15 | Emergency Department Report ---
Blank Doc - Documentation Documentation: 29-year-old female that presents with coughing, fever, chills, and vomit blood x1 episode. This initial assessment/diagnostic orders/clinical plan/treatment(s) is/are subject to change based on patient's health status, clinical progression and re- assessment by fellow clinical providers in the ED. Further treatment and workup at subsequent clinical providers discretion. Patient/guardians urged not to elope from the ED as their condition may be serious if not clinically assessed and managed. Initial orders include: 1- Patient sent to [facility] for further evaluation and treatment 2- cxr
[2019-11-17 18:17] VITALS: BP 127/76
--- NOTE | 2019-11-17 19:12 | XRay Report ---
CHEST 2 VIEWS INDICATION / CLINICAL INFORMATION: cough. COMPARISON: 11/21/2018 FINDINGS: SUPPORT DEVICES: None. HEART / MEDIASTINUM: No significant abnormality. LUNGS / PLEURA: No significant pulmonary or pleural abnormality. .No pneumothorax. ADDITIONAL FINDINGS: No significant additional findings. IMPRESSION: 1. No acute findings. Signer Name: Keon Crum MD Signed: 11/17/2019 7:08 PM Workstation Name: [id number]
[2019-11-17] MEDS ORDERED: BUTALB/ACETAMINOPHEN/CAFFEINE TAB PO ONE (19:54)
[2019-11-17] MEDS ORDERED: predniSONE 20 MG TAB PO ONE (19:54)
[2019-11-17] MEDS ORDERED: IBUPROFEN 600 MG TAB PO ONE (19:54)
[2019-11-17 20:29] LABS: Basophils # (Auto) 0.1 K/mm3 (0.0-0.1); Basophils % (Auto) 1.3 % (0.0-1.8); Eosinophils # (Auto) 0.3 K/mm3 (0.0-0.4); Eosinophils % (Auto) 2.3 % (0.0-4.3); Hematocrit 38.2 % (30.3-42.9); Hemoglobin 13.4 gm/dl (10.1-14.3); Lymphocytes # (Auto) 3.3 K/mm3 (1.2-5.4); Lymphocytes % (Auto) 30.7 % (13.4-35.0); Mean Corpuscular HGB Conc 35 % (30-34); Mean Corpuscular Volume 77 fl (79-97); Monocytes # (Auto) 0.3 K/mm3 (0.0-0.8); Platelet Count 276 K/mm3 (140-440); Red Blood Count 4.94 M/mm3 (3.65-5.03); Red Cell Distribution Width 15.5 % (13.2-15.2)
[2019-11-17 20:38] LABS: INR 0.92 (0.87-1.13)
[2019-11-17 20:39] LABS: Partial Thromboplastin Time 33.7 Sec. (24.2-36.6)
[2019-11-17 20:50] LABS: Alanine Aminotransferase 28 units/L (7-56); Albumin 4.5 g/dL (3.9-5); BUN/Creatinine Ratio 20; Blood Urea Nitrogen 12 mg/dL (7-17); Calcium 9.7 mg/dL (8.4-10.2); Hemolysis Index 8
--- NOTE | 2019-11-17 21:05 | Emergency Department Report ---
- General Chief Complaint: Upper Respiratory Infection Stated Complaint: COUGHING UP BLOOD,CHILLS, FEVER Time Seen by Provider: 11/17/19 18:14 Source: patient Mode of arrival: Ambulatory Limitations: No Limitations - History of Present Illness Initial Comments: Patient is a 29-year-old -Mosotho female with a history of asthma who presents to the ED with complaint of acute onset persistent nasal and sinus congestion, frontal sinus pressure and headache, fever and chills, persistent dry cough, pleuritic chest pain with every cough, and diffuse body aches and pains for the last 1 week. Patient also complains of intermittent nosebleeds and hemoptysis for the last 2 days. Patient denies dizziness, shortness of breath, abdominal pain, nausea, vomiting, sore throat, diarrhea, dysuria, urinary frequency and urgency, syncope, change in vision or neck pain. Patient states that she has been taking [id number] medications with no relief, and also been using her albuterol nebulizer at home the last time of which was over 12 hours ago. MD Complaint: fever, cough, rhinorrhea, nasal congestion, sinus pain, other (diffuse body aches and pain; nosebleeds; hemoptysis) -: Sudden, week(s) (1) Severity scale (0 -10): 4 Quality: sharp, aching Consistency: constant Improves With: nothing Worsens With: nothing Context: sick contacts Associated Symptoms: denies other symptoms, fever, chills, myalgias, headache, rhinorrhea, nasal congestion, cough, chest pain (pleuritic chest pain), epistaxis. denies: shortness of breath, abdominal pain, nausea, vomiting, diarrhea, dysuria, rash, right sweats, weight loss, hoarseness, ear pain Treatments Prior to Arrival: none - Related Data Previous Rx's Medication Instructions Recorded Last Taken Type Azithromycin [Zithromax TAB] 500 mg PO QDAY #5 tablet 11/21/18 Unknown Rx Oseltamivir [Tamiflu] 75 mg PO BID 5 Days #10 cap 01/09/19 Unknown Rx Benzonatate [Tessalon Perles] 100 mg PO Q8HR #30 capsule 11/17/19 Unknown Rx Cetirizine HCl [Zyrtec 10mg tab] 10 mg PO DAILY #30 tablet 11/17/19 Unknown Rx Doxycycline Hyclate 100 mg PO Q12H #20 tablet. 11/17/19 Unknown Rx Ibuprofen [Motrin 800 MG tab] 800 mg PO Q8HR PRN #30 tablet 11/17/19 Unknown Rx Prednisone [predniSONE 10 mg 10 mg PO .TAPER #21 tab.ds.pk 11/17/19 Unknown Rx (6-Day Pack, 21 Tabs)] Allergies Allergy/AdvReac Type Severity Reaction Status Date / Time Penicillins Allergy Angioedema Verified 01/09/19 15:26 Sulfa (Sulfonamide Allergy Angioedema Verified 08/02/19 13:13 Antibiotics) ED Review of Systems ROS: Stated complaint: COUGHING UP BLOOD,CHILLS, FEVER Other details as noted in HPI Constitutional: denies: chills, fever Eyes: denies: eye pain, eye discharge, vision change ENT: epistaxis, congestion. denies: ear pain, throat pain Respiratory: cough. denies: shortness of breath, SOB with exertion, SOB at rest, wheezing Cardiovascular: chest pain (pleuritic chest pain). denies: palpitations, syncope, paroxysmal nocturnal dyspnea Endocrine: no symptoms reported Gastrointestinal: denies: abdominal pain, nausea, vomiting, diarrhea, constipation Genitourinary: denies: urgency, dysuria, discharge Musculoskeletal: arthralgia, myalgia. denies: back pain, joint swelling Skin: denies: rash, lesions Neurological: headache. denies: weakness, paresthesias Psychiatric: denies: anxiety, depression Hematological/Lymphatic: denies: easy bleeding, easy bruising ED Past Medical Hx - Past Medical History Previous Medical History?: Yes Hx Hypertension: No Hx Congestive Heart Failure: No Hx Diabetes: No Hx Deep Vein Thrombosis: No Hx Renal Disease: No Hx Sickle Cell Disease: No Hx Seizures: No Hx Asthma: Yes Hx COPD: No Hx HIV: No Additional medical history: pyloric stenosis - Surgical History Past Surgical History?: Yes Additional Surgical History: tonsillectomy, - Social History Smoking Status: Never Smoker Substance Use Type: None - Medications Home Medications: Home Medications Medication Instructions Recorded Confirmed Last Taken Type Azithromycin [Zithromax TAB] 500 mg PO QDAY #5 tablet 11/21/18 08/12/19 Unknown Rx Oseltamivir [Tamiflu] 75 mg PO BID 5 Days #10 cap 01/09/19 08/12/19 Unknown Rx Benzonatate [Tessalon Perles] 100 mg PO Q8HR #30 capsule 11/17/19 Unknown Rx Cetirizine HCl [Zyrtec 10mg tab] 10 mg PO DAILY #30 tablet 11/17/19 Unknown Rx Doxycycline Hyclate 100 mg PO Q12H #20 tablet.dr 11/17/19 Unknown Rx Ibuprofen [Motrin 800 MG tab] 800 mg PO Q8HR PRN #30 tablet 11/17/19 Unknown Rx Prednisone [predniSONE 10 mg 10 mg PO .TAPER #21 tab.ds.pk 11/17/19 Unknown Rx (6-Day Pack, 21 Tabs)] ED Physical Exam - General Limitations: No Limitations General appearance: alert, in no apparent distress - Head Head exam: Present: atraumatic, normocephalic, normal inspection - Eye Eye exam: Present: normal appearance, PERRL, EOMI Pupils: Present: normal accommodation - ENT ENT exam: Present: normal orophraynx, mucous membranes moist, TM's normal bilaterally, normal external ear exam, other (grossly congested nasal passages; palpable frontal sinus tenderness) - Neck Neck exam: Present: normal inspection, full ROM. Absent: tenderness, meningismus, lymphadenopathy, thyromegaly - Respiratory Respiratory exam: Present: normal lung sounds bilaterally. Absent: respiratory distress, wheezes, rales, rhonchi, chest wall tenderness, accessory muscle use, decreased breath sounds - Cardiovascular Cardiovascular Exam: Present: regular rate, normal rhythm, normal heart sounds. Absent: systolic murmur, diastolic murmur, rubs, gallop - GI/Abdominal GI/Abdominal exam: Present: soft, normal bowel sounds. Absent: tenderness, guarding, rebound, hyperactive bowel sounds, hypoactive bowel sounds, organomegaly - Extremities Exam Extremities exam: Present: normal inspection, full ROM, normal capillary refill - Back Exam Back exam: Present: normal inspection, full ROM. Absent: tenderness, CVA tenderness (R), CVA tenderness (L), muscle spasm, paraspinal tenderness, vertebral tenderness - Neurological Exam Neurological exam: Present: alert, oriented X3, CN II-XII intact, normal gait, reflexes normal - Psychiatric Psychiatric exam: Present: normal affect, normal mood - Skin Skin exam: Present: warm, dry, intact, normal color. Absent: rash ED Course Vital Signs 11/17/19 11/17/19 18:15 20:27 Temperature 98.1 F Pulse Rate 77 Respiratory 18 17 Rate Blood Pressure 127/76 O2 Sat by Pulse 97 Oximetry ED Medical Decision Making - Lab Data Result diagrams: 11/17/19 20:12 11/17/19 20:12 - Radiology Data Radiology results: report reviewed, image reviewed Findings [facility] [address] [place] [address] XRay Report Signed Patient: HUGH GOULD MR#: [id number] : 1990 Acct:[id number] Age/Sex: 29 / F ADM Date: 11/17/19 Loc: ED Attending Dr: Ordering Physician: MATTHEW MENJIVAR NP Date of Service: 11/17/19 Procedure(s): XR chest routine 2V Accession Number(s): [id number] cc: MATTHEW MENJIVAR NP Fluoro Time In Minutes: CHEST 2 VIEWS INDICATION / CLINICAL INFORMATION: cough. COMPARISON: 11/21/2018 FINDINGS: SUPPORT DEVICES: None. HEART / MEDIASTINUM: No significant abnormality. LUNGS / PLEURA: No significant pulmonary or pleural abnormality. .No pneumothorax. ADDITIONAL FINDINGS: No significant additional findings. IMPRESSION: 1. No acute findings. Signer Name: Keon Crum MD Signed: 11/17/2019 7:08 PM Workstation Name: [id number] Transcribed By: SS Dictated By: Keon Crum MD Electronically Authenticated By: Keon Crum MD Signed Date/Time: 11/17/191907 DD/ 05 TD/TT: - Medical Decision Making This is a 29-year-old female with a history of asthma who presented to the ED with persistent nasal and sinus congestion, dry cough, diffuse body aches and pains, subjective fever and chills, frontal sinus pressure and headache for the last 1 week and intermittent epistaxis for 2 days. In the ED, patient is alert and oriented x3 and is not in any distress. Patient vital signs are stable, and the oxygen saturation is 97% on room air. Patient was treated in the ED for pain and also given oral prednisone. Chest x-ray shows no acute cardiopulmonary abnormalities or pneumonitis, pneumothorax or pleural effusion. Lab test results were reviewed and are all nonactionable. Patient symptoms are likely due to acute upper respiratory infection versus frontal sinusitis versus asthmatic bronchitis. Patient was discharged home on medications and advised to follow-up with her primary care physician in 5 to 7 days for reevaluation or return to the ED immediately if symptoms get worse. - Differential Diagnosis URI; Sinusitis; Bronchitis; Pneumonia; Flu Critical care attestation.: If time is entered above; I have spent that time in minutes in the direct care of this critically ill patient, excluding procedure time. ED Disposition Clinical Impression: Acute non-recurrent frontal sinusitis, Acute upper respiratory infection, Acute bronchitis with asthma Disposition: TO HOME OR SELFCARE Is pt being admited?: No Does the pt Need Aspirin: No Condition: Stable Instructions: Acute Bronchitis (ED), Asthma (ED), Acute Bacterial Rhinosinusitis (ED), Upper Respiratory Infection (ED) Additional Instructions: Take medications with food, drink plenty of fluids and follow-up with your primary care physician in 5 to 7 days for evaluation. Return to the ED immediately if symptoms get worse. Prescriptions: Doxycycline Hyclate 100 mg PO Q12H #20 tablet. Ibuprofen [Motrin 800 MG tab] 800 mg PO Q8HR PRN #30 tablet PRN Reason: Pain Prednisone [predniSONE 10 mg (6-Day Pack, 21 Tabs)] 10 mg PO .TAPER #21 tab.ds.pk Benzonatate [Tessalon Perles] 100 mg PO Q8HR #30 capsule Cetirizine HCl [Zyrtec 10mg tab] 10 mg PO DAILY #30 tablet Referrals: RAGINI PRINGLE MD [Staff Physician] - 7-10 days Time of Disposition: 21:13 Print Language: PERSIAN
== END 2019-11-17 21:27 | disposition home or self-care (01) ==
LOC: ED 15:24
DX: J01.10 Acute frontal sinusitis, unspecified (principal); J06.9 Acute upper respiratory infection, unspecified; J45.909 Unspecified asthma, uncomplicated; K31.1 Adult hypertrophic pyloric stenosis; Z98.890 Other specified postprocedural states; Z79.1 Long term (current) use of non-steroidal anti-inflammatories (NSAID); Z79.899 Other long term (current) drug therapy; Z88.0 Allergy status to penicillin; Z88.8 Allergy status to other drugs, medicaments and biological substances
CPT/HCPCS: 36415; 71046; 80053; 85025; 85610; 85730; 99284; J7512

== ENCOUNTER 2019-12-28 14:57 | Emergency (ER) | payer SELFPAY ==
[2019-12-28 15:11] VITALS: BP 133/74
--- NOTE | 2019-12-28 15:19 | Emergency Department Report ---
[facility] Chief Complaint: Eye Problems Stated Complaint: EYE INFECTION Time Seen by Provider: 12/28/19 15:11 Duration: 1 Day Side: Right Severity: mild Symptoms: Yes Eye Itching, Yes Eye Redness, No Eye Pain, No Mucous Drainage, No Purulent Drainage, No Blurred Vision, No Preceding URI, No H/O Allergic Rhinitis, No Contact Lens Use, No Trauma, No Fever, No Headache Other History: This is a 29-year-old female nontoxic well in appearance with no signs of distress presents to the ED with right eye itching, crusting, and redness x1 day. Patient denies any eye pain or foreign body sensation. Patient denies any other symptoms. Denies any blurry vision or visual changes. Denies any fever, chills, headache, nausea, vomiting, chest pain or SOB. Denies any other complaints. Patient stated allergies to PCN and sulfa. ED Review of Systems ROS: Stated complaint: EYE INFECTION Other details as noted in HPI Constitutional: denies: chills, fever Eyes: denies: eye pain, eye discharge, vision change ENT: denies: ear pain, throat pain Respiratory: denies: cough, shortness of breath, wheezing Cardiovascular: denies: chest pain, palpitations Endocrine: no symptoms reported Gastrointestinal: denies: abdominal pain, nausea, diarrhea Genitourinary: denies: urgency, dysuria, discharge Musculoskeletal: denies: back pain, joint swelling, arthralgia Skin: denies: rash, lesions Neurological: denies: headache, weakness, paresthesias Psychiatric: denies: anxiety, depression Hematological/Lymphatic: denies: easy bleeding, easy bruising ED Past Medical Hx - Past Medical History Hx Hypertension: No Hx Congestive Heart Failure: No Hx Diabetes: No Hx Deep Vein Thrombosis: No Hx Renal Disease: No Hx Sickle Cell Disease: No Hx Seizures: No Hx Asthma: Yes Hx COPD: No Hx HIV: No Additional medical history: pyloric stenosis - Surgical History Additional Surgical History: tonsillectomy, - Social History Smoking Status: Never Smoker Substance Use Type: None - Medications Home Medications: Home Medications Medication Instructions Recorded Confirmed Last Taken Type Azithromycin [Zithromax TAB] 500 mg PO QDAY #5 tablet 11/21/18 08/12/19 Unknown Rx Oseltamivir [Tamiflu] 75 mg PO BID 5 Days #10 cap 01/09/19 08/12/19 Unknown Rx Benzonatate [Tessalon Perles] 100 mg PO Q8HR #30 capsule 11/17/19 Unknown Rx Cetirizine HCl [Zyrtec 10mg tab] 10 mg PO DAILY #30 tablet 11/17/19 Unknown Rx Doxycycline Hyclate 100 mg PO Q12H #20 tablet. 11/17/19 Unknown Rx Ibuprofen [Motrin 800 MG tab] 800 mg PO Q8HR PRN #30 tablet 11/17/19 Unknown Rx Prednisone [predniSONE 10 mg 10 mg PO .TAPER #21 tab.ds.pk 11/17/19 Unknown Rx (6-Day Pack, 21 Tabs)] Polymyxin B Sulf/Trimethoprim 2 drops OD TID #1 drops 12/28/19 Unknown Rx [Polytrim Eye Drops] [facility] Exam - Exam General: Vital signs noted. No distress. Alert and acting appropriately. Eye Exam: Right Purulent Discharge, Neither Abnormal Pupil, Neither EOMI, Neither Eye Foreign Body, Neither Lid Foreign Body, Neither Mucous Discharge, Neither Corneal Edema, Neither Photophobia HEENT: No Nasal Congestion, No Pharyngeal Erythema Remainder of HEENT: Normal Lungs: Yes Clear Lung Sounds, Yes Good Air Exchange, No Wheezes, No Stridor, No Cough, No Nasal Flaring, No Retractions, No Use of Accessory Muscles ED Course Vital Signs 12/28/19 15:09 Temperature 98 F Pulse Rate 85 Respiratory 18 Rate Blood Pressure 133/74 O2 Sat by Pulse 99 Oximetry - Reevaluation(s) Reevaluation #1: 12/28/19 15:17 Patient is speaking in full sentences with no signs of distress noted. ED Medical Decision Making - Medical Decision Making Patient was instructed to Follow-up with a opthmologist doctor in 3-5 days or if symptoms worsen and continue return to emergency room as soon as possible. At time of discharge, the patient does not seem toxic or ill in appearance. No acute signs of distress noted. Patient agrees to discharge treatment plan of care. No further questions noted by the patient. Critical care attestation.: If time is entered above; I have spent that time in minutes in the direct care of this critically ill patient, excluding procedure time. ED Disposition Clinical Impression: Conjunctivitis, right eye Qualifiers: Conjunctivitis type: acute Acute conjunctivitis type: bacterial Qualified Code(s): H10.31 - Unspecified acute conjunctivitis, right eye Disposition: DC-01 TO HOME OR SELFCARE Is pt being admited?: No Does the pt Need Aspirin: No Condition: Stable Instructions: Conjunctivitis (ED) Additional Instructions: Follow-up with a opthmologist doctor in 3-5 days or if symptoms worsen and continue return to emergency room as soon as possible. Prescriptions: Polymyxin B Sulf/Trimethoprim [Polytrim Eye Drops] 2 drops OD TID #1 drops Referrals: PRIMARY CAREMD [Referring] - 3-5 Days CHEYENNE SERRATO MD [Staff Physician] - 3-5 Days RAGINI PRINGLE MD [Staff Physician] - 3-5 Days Forms: Work/School Release Form(ED)
== END 2019-12-28 15:32 | disposition home or self-care (01) ==
LOC: ED 14:57
DX: H10.31 Unspecified acute conjunctivitis, right eye (principal)
CPT/HCPCS: 99281

== ENCOUNTER 2020-06-15 10:19 | Emergency (ER) | payer MEDICAID ==
[2020-06-15 10:48] VITALS: BP 126/76
[2020-06-15 11:22] LABS: HCG Qualitative,Urine Negative (Negative)
[2020-06-15 11:24] LABS: Bilirubin,Urine NEG (Negative); Blood,Urine NEG (Negative); Color,Urine Yellow (Yellow); Mucus,Urine 3+ /HPF; Urobilinogen,Urine < 2.0 mg/dL (<2.0)
[2020-06-15 11:31] LABS: Basophils % (Auto) 0.4 % (0.0-1.8); Eosinophils # (Auto) 0.3 K/mm3 (0.0-0.4); Eosinophils % (Auto) 3.2 % (0.0-4.3); Hematocrit 36.3 % (30.3-42.9); Hemoglobin 12.8 gm/dl (10.1-14.3); Lymphocytes # (Auto) 2.4 K/mm3 (1.2-5.4); Lymphocytes % (Auto) 25.9 % (13.4-35.0); Mean Corpuscular HGB Conc 35 % (30-34); Mean Corpuscular Volume 74 fl (79-97); Monocytes # (Auto) 0.7 K/mm3 (0.0-0.8); Monocytes % (Auto) 7.5 % (0.0-7.3); Platelet Count 231 K/mm3 (140-440); Red Blood Count 4.93 M/mm3 (3.65-5.03); Red Cell Distribution Width 16.8 % (13.2-15.2)
[2020-06-15] MEDS ORDERED: ONDANSETRON 4 MG ODT TAB PO ONE (11:45)
[2020-06-15] MEDS ORDERED: HYDROcodone/ACETAMINOPHEN 5-325 MG TAB PO ONE (11:45)
--- NOTE | 2020-06-15 11:51 | Emergency Department Report ---
HPI - General Chief Complaint: Abdominal Pain Time Seen by Provider: 06/15/20 11:45 - HPI HPI: 29-year-old -[place] female presents to the emergency department with complaint of nausea without vomiting, abdominal and pelvic cramping pains. The patient has a history of endometriosis and abnormal/irregular menstrual cycles. She followed up with her [facility], Dr. Stack, last Sunday, and was placed on naproxen and Provera. Last menstrual cycle was February 24. She says that the medications have not been treating her discomfort. She denies any vaginal bleeding, discharge, dysuria, fever. No recent travel or sick contacts at home. ED Past Medical Hx - Past Medical History Hx Hypertension: No Hx Congestive Heart Failure: No Hx Diabetes: No Hx Deep Vein Thrombosis: No Hx Renal Disease: No Hx Sickle Cell Disease: No Hx Seizures: No Hx Asthma: Yes Hx COPD: No Hx HIV: No Additional medical history: pyloric stenosis - Surgical History Additional Surgical History: tonsillectomy, - Social History Smoking Status: Never Smoker - Medications Home Medications: Home Medications Medication Instructions Recorded Confirmed Last Taken Type Azithromycin [Zithromax TAB] 500 mg PO QDAY #5 tablet 11/21/18 08/12/19 Unknown Rx Oseltamivir [Tamiflu] 75 mg PO BID 5 Days #10 cap 01/09/19 08/12/19 Unknown Rx Benzonatate [Tessalon Perles] 100 mg PO Q8HR #30 capsule 11/17/19 Unknown Rx Cetirizine HCl [Zyrtec 10mg tab] 10 mg PO DAILY #30 tablet 11/17/19 Unknown Rx Doxycycline Hyclate 100 mg PO Q12H #20 tablet. 11/17/19 Unknown Rx Ibuprofen [Motrin 800 MG tab] 800 mg PO Q8HR PRN #30 tablet 11/17/19 Unknown Rx Prednisone [predniSONE 10 mg 10 mg PO .TAPER #21 tab.ds.pk 11/17/19 Unknown Rx (6-Day Pack, 21 Tabs)] Polymyxin B Sulf/Trimethoprim 2 drops OD TID #1 drops 12/28/19 Unknown Rx [Polytrim Eye Drops] HYDROcodone/APAP 5-325 [[place] 1 each PO Q6HR PRN #8 tablet 06/15/20 Unknown Rx 5/325] Ondansetron [Zofran Odt] 4 mg PO Q8HR PRN #15 tab.rapdis 06/15/20 Unknown Rx ED Review of Systems ROS: Stated complaint: CRAMPS, DIZZY, ABD PAIN Other details as noted in HPI Comment: All other systems reviewed and negative Constitutional: denies: chills, fever Eyes: denies: eye pain, vision change ENT: denies: ear pain, throat pain Respiratory: denies: cough, shortness of breath Cardiovascular: denies: chest pain, palpitations Gastrointestinal: abdominal pain, nausea. denies: vomiting, diarrhea Genitourinary: abnormal menses. denies: dysuria Musculoskeletal: denies: joint swelling, arthralgia Skin: denies: rash, lesions Neurological: denies: headache, weakness Physical Exam - Physical Exam Vital Signs: Vital Signs 06/15/20 10:45 Temperature 98.3 F Pulse Rate 70 Respiratory 15 Rate Blood Pressure 126/76 O2 Sat by Pulse 99 Oximetry Physical Exam: GENERAL: The patient is well-developed well-nourished. HENT: Normocephalic. Atraumatic. Patient has moist mucous membranes. EYES: Extraocular motions are intact. NECK: Supple. Trachea is midline. CHEST/LUNGS: Clear to auscultation. There is no respiratory distress noted. HEART/CARDIOVASCULAR: Regular. There is no tachycardia. There is no murmur. ABDOMEN: Abdomen is soft. Unable to reproduce lower abdominal and/or pelvic pain to palpation. No guarding. Patient has normal bowel sounds. There is no abdominal distention. SKIN: Skin is warm and dry. NEURO: The patient is awake, alert, and oriented. The patient is cooperative. Normal speech. MUSCULOSKELETAL: There is no tenderness or deformity. ED Course Vital Signs 06/15/20 10:45 Temperature 98.3 F Pulse Rate 70 Respiratory 15 Rate Blood Pressure 126/76 O2 Sat by Pulse 99 Oximetry ED Medical Decision Making - Lab Data Result diagrams: 06/15/20 11:13 06/15/20 11:13 - Radiology Data Radiology results: image reviewed interpreted by me: Abdominal x-ray shows nonspecific nonobstructive bowel gas - Medical Decision Making This patient presents to the emergency department with some lower abdominal and/or pelvic cramping, nausea without vomiting. Patient has a history of en dometriosis and irregular menstrual cycles. She is currently being seen by Dr. Miziere and tells me that they plan to do some type of surgical procedure to treat her endometriosis. She was placed on Provera and naproxen and allegedly they had hoped she would start her menstrual cycle, which she has not. Her labs today have been mostly unremarkable including CBC, metabolic panel, urinalysis and the patient is not . An abdominal x-ray did not show any acute process. She was given a dose of antiemetics and pain medication. Vital signs have been reassuring throughout her ED course. She appears safe for discharge home at this time and has been instructed to follow-up again with the [facility] [employer] service on how to proceed. She will return to the ER with any worsening of her symptoms or any acute distress. Critical Care Time: No Critical care attestation.: If time is entered above; I have spent that time in minutes in the direct care of this critically ill patient, excluding procedure time. ED Disposition Clinical Impression: Irregular menses, History of endometriosis, Pelvic cramping Disposition: TO HOME OR SELFCARE Is pt being admited?: No Condition: Stable Instructions: Acute Nausea and Vomiting (ED), Abdominal Pain (ED) Additional Instructions: Please follow-up with your primary care physician and [facility]. Return to the emergency department with any worsening of your symptoms or with any acute distress. You have been prescribed a medication that is sedating and therefore should not be taken prior to driving, working, and responsible for children and in no way should be mixed with alcohol of any quantity. Prescriptions: HYDROcodone/APAP 5-325 [[place] 5/325] 1 each PO Q6HR PRN #8 tablet PRN Reason: Pain Ondansetron [Zofran Odt] 4 mg PO Q8HR PRN #15 tab.rapdis PRN Reason: Nausea Referrals: PRIMARY CARE, [Primary Care Provider] - 3-5 Days LINDSAY STACK MD [Staff Physician] - 3-5 Days Time of Disposition: 12:27
[2020-06-15 11:55] LABS: Alanine Aminotransferase 32 units/L (7-56); Blood Urea Nitrogen 8 mg/dL (7-17); Calcium 9.3 mg/dL (8.4-10.2); Hemolysis Index 3
--- NOTE | 2020-06-15 12:22 | XRay Report ---
ABDOMEN 2 VIEW(S) INDICATION / CLINICAL INFORMATION: Abd pain. COMPARISON: None available. FINDINGS: TUBES / LINES: None. BOWEL GAS PATTERN: No significant abnormality. FREE AIR / EXTRALUMINAL GAS: None seen. ADDITIONAL FINDINGS: No significant additional findings. IMPRESSION: No significant abnormality. Signer Name: Amrit Little Jr, MD Signed: 06/15/2020 12:17 PM Workstation Name: [id number]
[2020-06-15 12:29] LABS: BUN/Creatinine Ratio 11
== END 2020-06-15 12:41 | disposition home or self-care (01) ==
LOC: ED 10:19
DX: N92.5 Other specified irregular menstruation (principal); J45.909 Unspecified asthma, uncomplicated; Z79.899 Other long term (current) drug therapy; Z90.89 Acquired absence of other organs; Z88.0 Allergy status to penicillin; Z88.2 Allergy status to sulfonamides
CPT/HCPCS: 36415; 74019; 80048; 80053; 81001; 81025; 83690; 85025; 99283; Q0162

== ENCOUNTER 2021-10-10 23:48 | Outpatient (CLI) | payer MEDICAID ==
[2021-10-11] MEDS ORDERED: LACTATED RINGERS 500 ML IV ONE (00:01)
[2021-10-11 00:45] LABS: Bilirubin,Urine NEG (Negative); Blood,Urine SM (Negative); Color,Urine Straw (Yellow); Protein,Urine <15 mg/dL mg/dL (Negative); Urobilinogen,Urine < 2.0 mg/dL (<2.0)
[2021-10-11 02:04] VITALS: BP 127/67
== END 2021-10-11 02:48 | disposition home or self-care (01) ==
LOC: TRG 23:48 → APU 23:50 → TRG 10-11 02:48
PROVIDERS: ATTEND Obstetrics & Gynecology
DX: O36.8130 Decreased fetal movements, third trimester, not applicable or unspecified (principal); Z3A.36 36 weeks gestation of pregnancy
CPT/HCPCS: 81001; Q0177